=== PATIENT | male | born 1990 | race Caucasian/White ===

== ENCOUNTER 2016-05-14 23:53 | Inpatient (IN) | payer OTHER ==
[~2016-05-14] VITALS: Ht 165.1 cm; Wt 63.1 kg
[2016-05-15 01:17] LABS: MEAN CORPUSCULAR HEMOGLOBIN 27.2 pg (27.0-33.0); MEAN CORPUSCULAR HGB CONC 33.7 g/dl (32.0-36.5); MEAN CORPUSCULAR VOLUME 80.9 fl (80.0-96.0); RED CELL DISTRIBUTION WIDTH 13.4 % (11.5-14.5); WHITE BLOOD COUNT 7.1 K/mm3 (4.0-10.0)
[2016-05-15 01:31] LABS: AMPHETAMINES LEVEL URINE NEGATIVE (NEGATIVE); BENZODIAZEPINES URINE NEGATIVE (NEGATIVE); COCAINE METABOLITE URINE NEGATIVE (NEGATIVE); CONTROL LINE INT CTR LINE PRESENT; METHADONE URINE NEGATIVE (NEGATIVE); OPIATES URINE NEGATIVE (NEGATIVE); TRICYCLIC ANTIDEPRESS URINE NEGATIVE (NEGATIVE)
[2016-05-15 02:02] LABS: ALBUMIN 4.4 GM/DL (3.2-5.2); ALBUMIN/GLOBULIN RATIO 1.42 (1.00-1.93); ALKALINE PHOSPHATASE 91 U/L (45-117); ALT/SGPT 58 U/L (12-78); ANION GAP 11 MEQ/L (8-16); AST/SGOT 40 U/L (15-37); BILIRUBIN,DIRECT < 0.1 MG/DL (0.0-0.2); BILIRUBIN,TOTAL 0.2 MG/DL (0.2-1.0); BLOOD UREA NITROGEN 21 MG/DL (7-18); CALCIUM LEVEL 8.8 MG/DL (8.5-10.1); CARBON DIOXIDE LEVEL 31 MEQ/L (21-32); CHLORIDE LEVEL 100 MEQ/L (98-107); CREATININE FOR GFR 1.14 MG/DL (0.70-1.30); GLOMERULAR FILTRATION RATE > 60.0 (>60); GLUCOSE, FASTING 87 MG/DL (70-105); POTASSIUM SERUM 3.5 MEQ/L (3.5-5.1); SODIUM LEVEL 142 MEQ/L (136-145); TOTAL PROTEIN 7.5 GM/DL (6.4-8.2)
[2016-05-15] MEDS ORDERED: MOM 30ML SUSPENSION UDC PO PRN (02:30)
[2016-05-15] MEDS ORDERED: traZODone 50 MG TAB PO PRN (02:30)
[2016-05-15] MEDS ORDERED: LORazepam 1 MG TAB PO PRN (02:30)
[2016-05-15] MEDS ORDERED: ACETAMINOPHEN TAB 650MG DOSE (2X325MG) PO PRN (02:30)
[2016-05-15] MEDS ORDERED: MAALOX 30 ML SUSP *UDC PO PRN (02:30)
--- NOTE | 2016-05-15 02:33 | EDDOCDS ---
Nurse's Notes [facility] Name: Fidel Grant Age: 25 yrs Sex: Male : 1990 Arrival Date: 05/14/2016 Time: 23:53 Bed [facility] Private MD: Diagnosis: Major depressive disorder, recurrent, moderate;Suicidal ideations Presentation: 05/15 00:05 Presenting complaint: Patient states: he is having thoughts of suicide, denies harm to nn1 self, denies suicide plan at this time. Mental Health Triage Level: Level 2: The patient displays active suicidal ideations. Adult Sepsis Screening: The patient does not have new or worsening altered mentation. Patient's respiratory rate is less than 22. Systolic blood pressure is greater than 100. Patient has a qSOFA score of 0- Negative Sepsis Screen. Mental Health Triage Level: Level 2:. Suicide/Homicide risk assessment- The patient admits to and/or has been reported to be having suicidal ideations. 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 Transition of care: patient was not received from another setting of care. 00:05 Acuity: SHREYA Level 3 nn1 00:05 Method Of Arrival: Walkin/Carried/Asstd nn1 Triage Assessment: 00:08 General: Appears in no apparent distress, Behavior is cooperative, flat, quiet. Pain: nn1 Denies pain. HIV screening NA for this visit Offered previously. The patient is triaged at the bedside. See Assessment in Nurses Notes section of ED record. Neurological: Level of Consciousness is awake, alert, obeys commands. Respiratory: Airway is patent Respiratory effort is even, unlabored, Respiratory pattern is regular, symmetrical, Breath sounds are clear bilaterally. GI: Abdomen is non- distended Bowel sounds present X 4 quads. Derm: Skin is normal. Historical: - Allergies: No known drug Allergies; - Home Meds: 1. none - PMHx: Depression; - PSHx: femur repair, left; - The history from nurses notes was reviewed: and elements of the historical information I have obtained differs from that reported to nursing. - Social history: Smoking status: Patient uses tobacco products, current every day smoker. No barriers to communication noted, The patient speaks fluent Swedish, Speaks appropriately for age. - Family history: No immediate family members are acutely ill. - : The pt / caregiver states he / she is not on anticoagulants. Home medication list is obtained from the patient. - Hospitalizations: : No recent hospitalization is reported. - Exposure Risk Screening:: None identified. - Immunization history:: All immunizations up-to-date. - Social history:: the patient is a non-smoker, the patient drinks alcohol. Screenin:33 Screening information is obtained from the patient. Fall risk: No risks identified. mv5 Assistance ADL's: requires no assistance with activities of daily living. Abuse/DV Screen: The patient / caregiver reports he/she is: not in a situation that causes fear, pain or injury. Nutritional screening: No deficits noted. Advance Directives: There is no active DNR order. home support is adequate. Assessment: 00:09 General: See triage assessment . nn1 00:33 General: Appears in no apparent distress, Behavior is quiet, Pt makes good eye contact, mv5 minimal verbal response to questions. Pt is cooperative and appropriate.. Pain: Denies pain. Neurological: Level of Consciousness is awake, alert, Oriented to person, place, time. Cardiovascular: Capillary refill < 3 seconds. Respiratory: Airway is patent Respiratory effort is even, unlabored, Respiratory pattern is regular, symmetrical. GI: No deficits noted. : No deficits noted. Derm: Skin is pink, warm & dry. 01:08 General: MD in to assess pt. ED FARM FACILITY MANAGER at bedside to collect bloods.. mv5 01:20 General: Patient received calm and cooperative, affect flat, states "had a beer before cf2 I got here". Offers no complaints at present time. Will continue to monitor. 01:53 General: Appears in no apparent distress, Behavior is quiet, Pt resting on stretcher mv5 with eyes closed.. Respiratory: Airway is patent Respiratory effort is even, unlabored, Respiratory pattern is regular, symmetrical. Derm: Skin is pink, warm & dry. 02:29 Reassessment: Patient resting comfortably. Remains calm and cooperative. 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 Referral Information: cl Evaluation referral is generated by the patient himself / herself. The patient was referred for evaluation because Pt expressing SI, has prior hx of depression and admission to [facility].. 01:32 [facility] Behavioral Health: The patient is not an established patient of [facility] Behavioral cl Health. Subjective: The patients chief complaint is Pt self presents to ED c/o feeling depressed/suicidal. Pt is quite guarded with minimal speech, poor eye contact, provides little information, many one word answers . Pt reports ongoing marital px, states "some things came to light about my , and now I'm here". Pt will not elaborate, remains guarded and is poor historian at this time. Pt denies AH/VH/substance abuse, when asked if any HI pt hesitates and mumbles "no", denies that he is in any current outpt MH tx, reports 1 prior deployment to [place], denies any PTSD issues.. Delusions are denied. Patient's mood is irritable, Hallucinations are denied. Mental Health history: depression, suicide ideation ideation Mental Health Admissions: [facility] 11/20...depression/SI/HI Current Outpatient Mental Health Services: None. Current living environment is The patient currently lives with his / her spouse, . The patient is . Patient presents to Emergency Department with the following symptoms within the past 2 weeks: anger, depressed mood, marital problem, suicidal ideation with plan for motor vehicle crash. Substance abuse: Pt denies. Mental status exam: Patients appearance is appropriate, Patient's behavior is minimally responsive Speech is mumbled. Affect is restricted. Mood is irritable. Hallucinations are denied. Appetite is normal. Memory is good. Energy level is normal. Content of thought is depressive. depressive Thought process is intact. Cognitive level is oriented to person, place, time and situation. 02:07 Disposition: Medically cleared for disposition by Adam Prater MD Psychiatric Consult cl is performed by phone with Dr Hussain Pereyra. 02:11 [facility] Admission Criteria: The patient is experiencing suicidal ideation. The patient cl displays symptoms of severe psychiatric disorder resulting in disordered behavior and significant interference with his / her ability to maintain self care. Psychomotor Retardation. The patient requires continuous observation and/or control to protect self, others or property. The patient's care requires a multi-modal treatment plan under close supervision and coordination due to the complexity and severity of the patient's symptoms. Legal Status: Patient's legal status will be Emergency admission: . [place] Safe [place]: [place] Safe Act is applicable to this patient. The patient poses a risk to self or other and the Nursing Pool Table Mechanic has been notified. He/She will enter the patient's data. DSM-V Differential Diagnosis: Unspecified Depressive Disorder (F32.9). Insurance Pre-Certification: Not Required. Family Notification: Notification to family of patient status is not currently needed or appropriate. Awaiting: transfer to [facility]. Vital Signs: 00:21 BP 149 / 75; Pulse 100; Resp 16; Temp 98.8(O); Pulse Ox 98% ; Weight 70.31 kg (R); [facility] Height 5 ft. 5 in. (165.10 cm) (R); Pain 0/10; 02:23 BP 143 / 68; Pulse 80; Resp 16; Temp 97.9; Pulse Ox 98% ; Pain 0/10; mas 00:21 Body Mass Index 25.79 (70.31 kg, 165.10 cm) [facility] Vitals: 02:30 Log In Time N/A - ambulance arrival. cf2 ED Course: 05/14 23:55 Patient visited by Arnulfo Payne, Reg. pm4 23:55 Patient moved to Waiting pm4 02 00:00 Patient moved to [address] 00:07 Patient name changed from Haze\\S\\\\S\\Przeslak\\S\\ to Haze\\S\\ \\S\\Przeslak. EDMS 00:07 Triage Initiated nn1 00:10 Patient visited by Salvatore Chavira. mas 00:15 Patient visited by Salvatore Chavira. [facility] 00:22 Pt greeted and oriented to ED. Patient advised of names of staff involved in care, [facility] location of call [place], wait times and NPO status. Patient has correct armband on for positive identification. Placed in psych safe attire. Bed in low position. Call light in reach. Side rails up X 1. Security observing. Property removed, inventory done, secured in belongings bag- placed in locked storage room. Placed in locker 1. Door closed. Noise minimized. Moved to private room. Verbal reassurance given. Warm blanket given. Pillow given. Psych Safety Check: Location: Psych Room. Visual Assessment: cooperative \\T\\ this time. 00:32 Isabella Flanagan,RN is Primary Nurse. mv5 00:33 The patient / caregiver is instructed regarding the plan of care and ED course. mv5 00:38 Patient visited by Alex Bell PCA. jmv 00:45 Patient visited by Salvatore Chavira. mas 00:46 Adam Prater MD is Attending Physician. pc 01:04 Patient visited by Salvatore Chavira. mas 01:09 Primary Nurse role handed off by Isabella Flanagan,ARLIN cf2 01:09 Tabitha Mills,ARLIN is Primary Nurse. cf2 01:09 Patient visited by Tabitha Mills,ARLIN. cf2 01:11 Acetaminophen Level Sent. jmv 01:11 Basic Metabolic Profile Sent. jmv 01:11 Complete Blood Count Sent. jmv 01:11 Drug Eval Toxicology ED Only Sent. jmv 01:11 Ethyl Alcohol (ethanol) Sent. jmv 01:11 Liver Profile Sent. jmv 01:11 Salicylate Level Sent. jmv 01:11 Thyroid Stimulating Hormone Sent. jmv 01:13 Patient visited by Adam Prater MD. pc 01:15 Patient visited by Salvatore Chavira. mas 01:19 Patient visited by Tabitha Mills RN. cf2 01:20 Sitter at bedside. cf2 01:20 No procedures done that require assistance. cf2 01:20 No IV's were initiated during this patient's visit. cf2 01:30 Patient visited by Salvatore Chavira. mas 01:45 Patient visited by Salvatore Chavira. mas 02:00 Patient visited by Salvatore Chavira. mas 02:16 Patient visited by Salvatore Chavira. mas 02:17 Hussain Pereyra is Hospitalizing Provider. pc 02:25 E Legal paperwork was scanned into [employer] and attached to record. cl Attachments: 02:25 M[facility] Legal paperwork cl Order Results: Lab Order: Acetaminophen Level; SPEC'M 05/15/16 01:07 Test: ACETAMINOPHEN LEVEL; Value: < 2.0; Range: 10.0-30.0; Abnormal: Below low normal; Units: UG/ML; Status: F Lab Order: Basic Metabolic Profile; SPEC'M 05/15/16 01:07 Test: GLUCOSE, FASTING; Value: 87; Range: 70-105; Units: MG/DL; Status: F Test: BLOOD UREA NITROGEN; Value: 21; Range: 7-18; Abnormal: Above high normal; Units: MG/DL; Status: F Test: CREATININE FOR GFR; Value: 1.14; Range: 0.70-1.30; Units: MG/DL; Status: F Test: GLOMERULAR FILTRATION RATE; Value: > 60.0; Range: >60; Status: F Test: SODIUM LEVEL; Value: 142; Range: 136-145; Units: MEQ/L; Status: F Test: POTASSIUM SERUM; Value: 3.5; Range: 3.5-5.1; Units: MEQ/L; Status: F Test: CHLORIDE LEVEL; Value: 100; Range: 98-107; Units: MEQ/L; Status: F Test: CARBON DIOXIDE LEVEL; Value: 31; Range: 21-32; Units: MEQ/L; Status: F Test: ANION GAP; Value: 11; Range: 8-16; Units: MEQ/L; Status: F Test: CALCIUM LEVEL; Value: 8.8; Range: 8.5-10.1; Units: MG/DL; Status: F Test Note: ; Units are mL/min/1.73 m2 Chronic Kidney Disease Staging per NKF: Stage I & II GFR >=60 Normal to Mildly Decreased Stage III GFR 30-59 Moderately Decreased Stage IV GFR 15-29 Severely Decreased Stage V GFR <15 Very Little GFR Left ESRD GFR <15 on EXECUTIVE KITCHEN MANAGER Lab Order: Complete Blood Count; [facility] 05/15/16 01:07 Test: WHITE BLOOD COUNT; Value: 7.1; Range: 4.0-10.0; Units: K/mm3; Status: F Test: RED BLOOD COUNT; Value: 4.95; Range: 4.30-6.10; Units: M/mm3; Status: F Test: HEMOGLOBIN; Value: 13.5; Range: 14.0-18.0; Abnormal: Below low normal; Units: g/dl; Status: F Test: HEMATOCRIT; Value: 40.1; Range: 42.0-52.0; Abnormal: Below low normal; Units: %; Status: F Test: MEAN CORPUSCULAR VOLUME; Value: 80.9; Range: 80.0-96.0; Units: fl; Status: F Test: MEAN CORPUSCULAR HEMOGLOBIN; Value: 27.2; Range: 27.0-33.0; Units: pg; Status: F Test: MEAN CORPUSCULAR HGB CONC; Value: 33.7; Range: 32.0-36.5; Units: g/dl; Status: F Test: RED CELL DISTRIBUTION WIDTH; Value: 13.4; Range: 11.5-14.5; Units: %; Status: F Test: PLATELET COUNT, AUTOMATED; Value: 225; Range: 150-450; Units: k/mm3; Status: F Lab Order: Drug Eval Toxicology ED Only; SPEC'M 05/15/16 01:07 Test: AMPHETAMINES LEVEL URINE; Value: NEGATIVE; Range: NEGATIVE; Status: F Test: BARBITURATES URINE; Value: NEGATIVE; Range: NEGATIVE; Status: F Test: BENZODIAZEPINES URINE; Value: NEGATIVE; Range: NEGATIVE; Status: F Test: CANNABINOIDS URINE; Value: NEGATIVE; Range: NEGATIVE; Status: F Test: COCAINE METABOLITE URINE; Value: NEGATIVE; Range: NEGATIVE; Status: F Test: METHADONE URINE; Value: NEGATIVE; Range: NEGATIVE; Status: F Test: OPIATES URINE; Value: NEGATIVE; Range: NEGATIVE; Status: F Test: TRICYCLIC ANTIDEPRESS URINE; Value: NEGATIVE; Range: NEGATIVE; Status: F Test Note: ; ALL PRESUMPTIVE POSITIVE FINDINGS ARE UNCONFIRMED NORMAL VALUES THRESHOLD IN NG/ML AMPHETAMINES 1000 METHAMPHETAMINES 1000 BARBITURATES 300 BENZODIAZEPINES 300 CANNABINOIDS (THC) 50 COCAINE METABOLITE 300 METHADONE 300 OPIATES 300 PHENCYCLIDINE 25 TRICYCLIC ANTIDEPRESSANTS 1000 RESULTS ARE FOR MEDICAL PURPOSES ONLY. ALL URINE SPECIMENS WILL BE SAVED FOR 3 DAYS. IF CONFIRMATION OF A PRESUMPTIVE POSTIVE SCREEN RESULT IS DESIRED, CALL CHEMISTRY ([phone]) AND REQUEST URINE TO BE SENT TO REFERENCE LAB. FOR A LIST OF CLOSELY RELATED COMPOUNDS PLEASE CALL THE LAB. Lab Order: Ethyl Alcohol (ethanol); SPEC'M 05/15/16 01:07 Test: ETHYL ALCOHOL (ETHANOL); Value: 0.003; Range: 0.000-0.010; Units: %; Status: F Lab Order: Liver Profile; SPEC'M 05/15/16 01:07 Test: AST/SGOT; Value: 40; Range: 15-37; Abnormal: Above high normal; Units: U/L; Status: F Test: ALT/SGPT; Value: 58; Range: 12-78; Units: U/L; Status: F Test: ALKALINE PHOSPHATASE; Value: 91; Range: 45-117; Units: U/L; Status: F Test: BILIRUBIN,TOTAL; Value: 0.2; Range: 0.2-1.0; Units: MG/DL; Status: F Test: BILIRUBIN,DIRECT; Value: < 0.1; Range: 0.0-0.2; Units: MG/DL; Status: F Test: TOTAL PROTEIN; Value: 7.5; Range: 6.4-8.2; Units: GM/DL; Status: F Test: ALBUMIN; Value: 4.4; Range: 3.2-5.2; Units: GM/DL; Status: F Test: ALBUMIN/GLOBULIN RATIO; Value: 1.42; Range: 1.00-1.93; Status: F Lab Order: Salicylate Level; SPEC'M 05/15/16 01:07 Test: SALICYLATE LEVEL; Value: < 1.7; Range: 5.0-30.0; Abnormal: Below low normal; Units: MG/DL; Status: F Lab Order: Thyroid Stimulating Hormone; SPEC'M 05/15/16 01:07 Test: THYROID STIMULATING HORMONE; Value: 1.770; Range: 0.358-3.740; Units: uIU/ML; Status: F Outcome: 02:17 Decision to Hospitalize by Provider. pc 02:29 Discharge Assessment: Patient awake, alert and oriented x 3. No cognitive and/or cf2 functional deficits noted. Patient verbalized understanding of disposition instructions. Patient awake and alert. Oriented to person, place and time. patient administered narcotics - no. The following High Risk Discharge criteria are identified: Yes, Patient with depression and suicidal ideations. Admitted to Psych accompanied by tech. Condition: good Condition: stable Condition: improved. CT Study completed. 02:32 Patient left the ED. cf2 Signatures: Dispatcher [employer] EDMS Adam Prater MD MD pc Lavin, Chris, Salvatore Lundy NikkoleRN RN nn1 Tabitha Mills,RN RN cf2 Alex Bell, FARM FACILITY MANAGER FARM FACILITY MANAGER Arnulfo Aquino, Reg Reg pm4 Isabella Flanagan,RN RN mv5 Corrections: (The following items were deleted from the chart) 00:47 00:07 PMHx: none; nn1 pc 01:22 01:20 Assist provider with arterial line placement cf2 cf2 MTDD
--- NOTE | 2016-05-15 02:33 | EDDOCDS ---
Physician Documentation [facility] Name: Fidel Grant Age: 25 yrs Sex: Male : 1990 Arrival Date: 05/14/2016 Time: 23:53 Bed BHU1 Private MD: Disposition: 05/15 02:17 Critical Care: Critical care not applicable. pc Disposition: 05/15/16 02:17 Hospitalization ordered by Hussain Pereyra for Inpatient Admission. Preliminary diagnosis are Major depressive disorder, recurrent, moderate, Suicidal ideations. - Bed requested for Admit. - Status is Inpatient Admission. cf2 - Condition is Stable. - Problem is new. - Symptoms are unchanged. HPI: 01:13 This 25 yrs old Male presents to ER via Walkin/Carried/Asstd with complaints pc of Suicidal Ideation. 01:13 The history is obtained from the patient. The patient presents to the emergency pc department with suicidal ideation, depression. At their worst, the symptoms were moderate. In the emergency department, the symptoms are unchanged. He is very reserved, will not discuss his issues. Very brief answers to all questions, poor eye contact. The patient has experienced a previous episode, last year. The patient has not recently seen a physician. He denied any Psych history or admissions despite being admitted here last summer for the same. Historical: - Allergies: No known drug Allergies; - Home Meds: 1. none - PMHx: Depression; - PSHx: femur repair, left; - The history from nurses notes was reviewed: and elements of the historical information I have obtained differs from that reported to nursing. - Social history: Smoking status: Patient uses tobacco products, current every day smoker. No barriers to communication noted, The patient speaks fluent Danish, Speaks appropriately for age. - Family history: No immediate family members are acutely ill. - : The pt / caregiver states he / she is not on anticoagulants. Home medication list is obtained from the patient. - Hospitalizations: : No recent hospitalization is reported. - Exposure Risk Screening:: None identified. - Immunization history:: All immunizations up-to-date. - Social history:: the patient is a non-smoker, the patient drinks alcohol. ROS: 01:33 All systems are negative except as listed. The psychiatric and neurological components pc are also addressed in the HPI. Exam: 01:33 General Appearance: alert, no acute distress. pc 01:33 ENT: ear, nose and throat normal, pharynx normal. 01:33 Eyes: pupils equal, round and reactive to light, extraocular motions intact. 01:33 Neck: The exam reveals no acute abnormalities. ROM is normal and painless. No nuchal rigidity is noted.. 01:33 Respiratory: breathing is even and unlabored, breath sounds are normal. 01:33 Cardiovascular: regular pulse rate, regular heart rhythm, normal heart sounds, equal and full pulses bilaterally. 01:33 Abdomen: soft, non-tender, no organomegaly. 01:33 Skin: skin color is normal, warm, dry. 01:33 Extremities: The extremities have a grossly normal appearance, are non-tender, without acute ROM abnormalities. 01:33 Neuro: alert, oriented to person, place and time, cranial nerves normal as tested, no motor deficits, no sensory deficits. 01:33 Psych: mood is depressed, affect is flat. Vital Signs: 00:21 BP 149 / 75; Pulse 100; Resp 16; Temp 98.8(O); Pulse Ox 98% ; Weight 70.31 kg / 155.01 mas lbs (R); Height 5 ft. 5 in. (165.10 cm) (R); Pain 0/10; 02:23 BP 143 / 68; Pulse 80; Resp 16; Temp 97.9; Pulse Ox 98% ; Pain 0/10; mas 00:21 Body Mass Index 25.79 (70.31 kg, 165.10 cm) [facility] MDM: 00:46 Consult PFS/PSA/Tool Distributor: Patient's case requires discussion with on-call pc Psychiatrist ordered. 00:46 PSA/PFS to call Nursing Supercharger Repair Supervisor, to enter patient data on [place] Safe Act if patient pc involuntarily admitted or transferred for SI or HI ordered. 00:46 Confirm accurate psychiatric medication list and times of last dosage ordered. pc 00:46 Detain Pt Until Medically/PFS Cleared ordered. pc 00:47 Acetaminophen Level Ordered. EDMS 00:47 Basic Metabolic Profile Ordered. EDMS 00:47 Complete Blood Count Ordered. EDMS 00:47 Drug Eval Toxicology ED Only Ordered. EDMS 00:47 Ethyl Alcohol (ethanol) Ordered. EDMS 00:47 Liver Profile Ordered. EDMS 00:47 Salicylate Level Ordered. EDMS 00:47 Thyroid Stimulating Hormone Ordered. EDMS 01:33 Differential diagnosis: depression, suicidal ideation. Plan: labs, PFS eval. pc 01:37 Financial registration complete. hs2 01:38 Consult PFS/PSA/Tool Distributor: Patient's case requires discussion with on-call cl Psychiatrist complete. 01:38 PSA/PFS to call Nursing Supercharger Repair Supervisor, to enter patient data on [place] Safe Act if patient cl involuntarily admitted or transferred for SI or HI complete. 02:01 Complete Blood Count Reviewed. pc 02:01 Drug Eval Toxicology ED Only Reviewed. pc 02:04 Acetaminophen Level Reviewed. pc 02:04 Basic Metabolic Profile Reviewed. pc 02:04 Liver Profile Reviewed. pc 02:04 Salicylate Level Reviewed. pc 02:04 Ethyl Alcohol (ethanol) Reviewed. pc 02:04 Thyroid Stimulating Hormone Reviewed. pc 02:17 The patient has been medically cleared for psychiatric evaluation, admission and/or pc transfer. [place] Safe Act reporting: The patient poses a significant risk to self or others, and PSA/PFS has notified the Nursing Supercharger Repair Supervisor and he/she will complete the required data integration architect. Data reviewed: old medical records, vital signs, nurses notes, lab test results. Test interpretation: LAB - all labs as ordered have been reviewed, interpreted and considered in the overall management of the clinical presentation;. The patient has been re-examined and re-evaluated. There is no appreciated change of the patient's symptoms at this time. Other consultation: The ED dairy husbandry worker was notified and will evaluate the patient. 02:17 Disposition: The historical points, examination findings, and any diagnostic results pc supporting the provided diagnosis, were discussed with the patient or legal guardian. The need for further work-up and/or treatment in the hospital was explained. 02:23 Admit to IMHU: ordered. EDMS 02:23 REGULAR DIET ordered. EDMS 02:25 MHE Legal paperwork was scanned into [employer] and attached to record. cl Signatures: Dispatcher [employer] EDMS Adam Prater MD MD pc Lavin, Chris, PSA PSA cl Basim MartinRN RN nn1 Lesly Pathak, Reg Reg hs2 Tabitha Mills RN RN cf2 Isabella Flanagan RN RN mv5 The chart was reviewed and I authenticate all verbal orders and agree with the evaluation and treatment provided.Corrections: (The following items were deleted from the chart) 00:47 00:07 PMHx: none; nn1 pc MTDD
[2016-05-15 02:42] VITALS: BP 142/78
[2016-05-15] MEDS ORDERED: DICL1GEL3 TD (04:06)
--- NOTE | 2016-05-15 11:49 | HPEPDOC ---
Medical History and Physical Date of Admission May 15, 2016 at 02:35 History and Physical PCP: [facility] ATTENDING: Dr. Germain Barriga HPI: 25yoM admitted to [facility] for MDD, being medically examined today. No acute medical complaints today. Denies any fevers, chills, weakness, fatigue, CHILDS, CP, SOB, cough, palpitations, abdominal pain, N/V/D or changes in bowel or bladder habits. 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 ROS: As noted in HPI, otherwise 11pt ROS of systems reviewed and unremarkable PE: GEN: 24yoM, appears stated age. Well-nourished, well developed. No acute distress. Alert and oriented x 3. Pleasant, interactive. HEENT: Normocephalic, atraumatic. Pupils are equal, round, and reactive to light. Extraocular movements are intact. No nystagmus appreciated. Sclera are nonicteric. Conjunctiva without injection. Nose midline. Nasal turbinates without bogginess. EACs both patent BL. TMs both visualized and garrett with good cone of light, no bulging or erythema. No facial asymmetry. Moist mucous membranes. Dentition fair. Pharynx pink and moist, no cobblestoning. Neck supple , trachea midline. No lymphadenopathy or thyromegaly appreciated. CHEST: Regular rate and rhythm, +S1, +S2 LUNGS: Clear to auscultation bilaterally. No wheezes, rales, or rhonchi. Breathing appears symmetric and easy. Patient is speaking in full sentences. No accessory muscle use. ABD: Round, soft, non-tender, non-distended. +Bowel sounds throughout. No rebound or guarding. No costovertebral angle tenderness. EXT: Pulses 2+ bilaterally dorsalis pedis and radial. No lower extremity edema appreciated. SKIN: [place], dry, warm. Capillary refill <2sec. No rashes. NEURO: Alert and oriented x 3. Cranial nerves III-XII are intact. No focal deficits appreciated. EK/16 SB, short OR interval, early repolarization. A&P: 24yoM admitted to [facility] for MDD. 1. Psych. Plan per Psychiatry. EKG on file. 2. Nicotine dependence. Patch available. 3. Elevated AST. Recheck CMP. 4. Follow up with PCP on discharge. [facility]. 5. 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 Vital Signs Vital Signs Label Value Date Time Patient Temperature 97.6 degrees F 05/15/16 0242 Temperature Source Tympanic 05/15/16 0242 Pulse 82 05/15/16 0242 Respiratory Rate 20 bpm 05/15/16 0242 Blood Pressure Assessment 142/78 (99) 05/15/16 0242 Laboratory Data Labs 24H Laboratory Tests 2 05/15/16 01:07: Acetaminophen Level < 2.0L, Aspartate Amino Transf (AST/SGOT) 40H, Alanine Aminotransferase (ALT/SGPT) 58, Alkaline Phosphatase 91, Total Bilirubin 0.2, Direct Bilirubin < 0.1, Albumin 4.4, Albumin/Globulin Ratio 1.42, Anion Gap 11, Calcium Level 8.8, Ethyl Alcohol Level 0.003, Glomerular Filtration Rate > 60.0 , Salicylates Level < 1.7L, Thyroid Stimulating Hormone (TSH) 1.770, Total Protein 7.5, Urine Amphetamine Level NEGATIVE, Urine Benzodiazepines Screen NEGATIVE, Urine Cannabinoids NEGATIVE, Urine Cocaine Metabolite NEGATIVE, Urine Opiates Screen NEGATIVE, Urine Barbiturates, Qualitative NEGATIVE, Urine Methadone Screen NEGATIVE, Urine Tricyclic Antidepressants NEGATIVE CBC/BMP Laboratory Tests 05/15/16 01:07 Red Blood Count 4.95, Mean Corpuscular Volume 80.9, Mean Corpuscular Hemoglobin 27.2, Mean Corpuscular Hemoglobin Concent 33.7, Red Cell Distribution Width 13.4 Home Medications Scheduled PRN (Diclofenac Sodium) 1 % Gel 1 DOSE TD DAILY PRN PRN PAIN APPLIES TO KNEES Allergies Coded Allergies: No Known Drug Allergy (Verified Allergy, Unknown, 11/14/15) Sonya Helm May 15, 2016 11:49
[2016-05-15 12:38] VITALS: BP 124/56
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
[2016-05-15] MEDS ORDERED: hydrOXYzine 50 MG TAB PO PRN (16:00)
[2016-05-15 18:04] VITALS: BP 122/62
[2016-05-15] MEDS: traZODone 50 MG TAB PO SCH (21:19)
[2016-05-16 07:04] VITALS: BP 112/63
[2016-05-16 08:15] LABS: ALBUMIN 3.6 GM/DL (3.2-5.2); ALKALINE PHOSPHATASE 80 U/L (45-117); ALT/SGPT 43 U/L (12-78); ANION GAP 7 MEQ/L (8-16); AST/SGOT 24 U/L (15-37); BILIRUBIN,TOTAL 0.4 MG/DL (0.2-1.0); BLOOD UREA NITROGEN 16 MG/DL (7-18); CARBON DIOXIDE LEVEL 30 MEQ/L (21-32); CHLORIDE LEVEL 106 MEQ/L (98-107); CREATININE FOR GFR 1.15 MG/DL (0.70-1.30); GLOMERULAR FILTRATION RATE > 60.0 (>60); GLUCOSE, FASTING 87 MG/DL (70-105); POTASSIUM SERUM 4.3 MEQ/L (3.5-5.1); SODIUM LEVEL 143 MEQ/L (136-145); TOTAL PROTEIN 6.6 GM/DL (6.4-8.2)
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
[2016-05-16 18:00] VITALS: BP 113/68
[2016-05-16] MEDS: traZODone 50 MG TAB PO SCH (22:34)
--- NOTE | 2016-05-17 03:33 | EDDOCDS ---
Physician Documentation [facility] Name: Fidel Grant Age: 25 yrs Sex: Male : 1990 Arrival Date: 05/14/2016 Time: 23:53 Bed BHU1 Private MD: Disposition: 05/15 02:17 Critical Care: Critical care not applicable. pc Disposition: 05/15/16 02:17 Hospitalization ordered by Hussain Pereyra for Inpatient Admission. Preliminary diagnosis are Major depressive disorder, recurrent, moderate, Suicidal ideations. - Bed requested for Admit. - Status is Inpatient Admission. cf2 - Condition is Stable. - Problem is new. - Symptoms are unchanged. HPI: 01:13 This 25 yrs old Male presents to ER via Walkin/Carried/Asstd with complaints pc of Suicidal Ideation. 01:13 The history is obtained from the patient. The patient presents to the emergency pc department with suicidal ideation, depression. At their worst, the symptoms were moderate. In the emergency department, the symptoms are unchanged. He is very reserved, will not discuss his issues. Very brief answers to all questions, poor eye contact. The patient has experienced a previous episode, last year. The patient has not recently seen a physician. He denied any Psych history or admissions despite being admitted here last summer for the same. Historical: - Allergies: No known drug Allergies; - Home Meds: 1. none - PMHx: Depression; - PSHx: femur repair, left; - The history from nurses notes was reviewed: and elements of the historical information I have obtained differs from that reported to nursing. - Social history: Smoking status: Patient uses tobacco products, current every day smoker. No barriers to communication noted, The patient speaks fluent Nepali, Speaks appropriately for age. - Family history: No immediate family members are acutely ill. - : The pt / caregiver states he / she is not on anticoagulants. Home medication list is obtained from the patient. - Hospitalizations: : No recent hospitalization is reported. - Exposure Risk Screening:: None identified. - Immunization history:: All immunizations up-to-date. - Social history:: the patient is a non-smoker, the patient drinks alcohol. ROS: 01:33 All systems are negative except as listed. The psychiatric and neurological components pc are also addressed in the HPI. Exam: 01:33 General Appearance: alert, no acute distress. pc 01:33 ENT: ear, nose and throat normal, pharynx normal. 01:33 Eyes: pupils equal, round and reactive to light, extraocular motions intact. 01:33 Neck: The exam reveals no acute abnormalities. ROM is normal and painless. No nuchal rigidity is noted.. 01:33 Respiratory: breathing is even and unlabored, breath sounds are normal. 01:33 Cardiovascular: regular pulse rate, regular heart rhythm, normal heart sounds, equal and full pulses bilaterally. 01:33 Abdomen: soft, non-tender, no organomegaly. 01:33 Skin: skin color is normal, warm, dry. 01:33 Extremities: The extremities have a grossly normal appearance, are non-tender, without acute ROM abnormalities. 01:33 Neuro: alert, oriented to person, place and time, cranial nerves normal as tested, no motor deficits, no sensory deficits. 01:33 Psych: mood is depressed, affect is flat. Vital Signs: 00:21 BP 149 / 75; Pulse 100; Resp 16; Temp 98.8(O); Pulse Ox 98% ; Weight 70.31 kg / 155.01 mas lbs (R); Height 5 ft. 5 in. (165.10 cm) (R); Pain 0/10; 02:23 BP 143 / 68; Pulse 80; Resp 16; Temp 97.9; Pulse Ox 98% ; Pain 0/10; mas 00:21 Body Mass Index 25.79 (70.31 kg, 165.10 cm) [facility] MDM: 00:46 Consult PFS/PSA/Clinical Trial Coordinator: Patient's case requires discussion with on-call pc Psychiatrist ordered. 00:46 PSA/PFS to call Nursing Alpine Guide, to enter patient data on [place] Safe Act if patient pc involuntarily admitted or transferred for SI or HI ordered. 00:46 Confirm accurate psychiatric medication list and times of last dosage ordered. pc 00:46 Detain Pt Until Medically/PFS Cleared ordered. pc 00:47 Acetaminophen Level Ordered. EDMS 00:47 Basic Metabolic Profile Ordered. EDMS 00:47 Complete Blood Count Ordered. EDMS 00:47 Drug Eval Toxicology ED Only Ordered. EDMS 00:47 Ethyl Alcohol (ethanol) Ordered. EDMS 00:47 Liver Profile Ordered. EDMS 00:47 Salicylate Level Ordered. EDMS 00:47 Thyroid Stimulating Hormone Ordered. EDMS 01:33 Differential diagnosis: depression, suicidal ideation. Plan: labs, PFS eval. pc 01:37 Financial registration complete. hs2 01:38 Consult PFS/PSA/Clinical Trial Coordinator: Patient's case requires discussion with on-call cl Psychiatrist complete. 01:38 PSA/PFS to call Nursing Alpine Guide, to enter patient data on [place] Safe [place] if patient cl involuntarily admitted or transferred for SI or HI complete. 02:01 Complete Blood Count Reviewed. pc 02:01 Drug Eval Toxicology ED Only Reviewed. pc 02:04 Acetaminophen Level Reviewed. pc 02:04 Basic Metabolic Profile Reviewed. pc 02:04 Liver Profile Reviewed. pc 02:04 Salicylate Level Reviewed. pc 02:04 Ethyl Alcohol (ethanol) Reviewed. pc 02:04 Thyroid Stimulating Hormone Reviewed. pc 02:17 The patient has been medically cleared for psychiatric evaluation, admission and/or pc transfer. [place] Safe Act reporting: The patient poses a significant risk to self or others, and PSA/PFS has notified the Nursing Alpine Guide and he/she will complete the required databases computer consultant. Data reviewed: old medical records, vital signs, nurses notes, lab test results. Test interpretation: LAB - all labs as ordered have been reviewed, interpreted and considered in the overall management of the clinical presentation;. The patient has been re-examined and re-evaluated. There is no appreciated change of the patient's symptoms at this time. Other consultation: The ED ironworker was notified and will evaluate the patient. 02:17 Disposition: The historical points, examination findings, and any diagnostic results pc supporting the provided diagnosis, were discussed with the patient or legal guardian. The need for further work-up and/or treatment in the hospital was explained. 02:23 Admit to IMHU: ordered. EDMS 02:23 REGULAR DIET ordered. EDMS 02:25 [facility] Legal paperwork was scanned into [employer] and attached to record. cl 02:40 [place] Payment Agreement was scanned into [employer] and attached to record. hs2 Signatures: Dispatcher [employer] EDMS Adam Prater MD MD pc Lavin, Chris, PSA PSA cl Basim MartinRN RN nn1 Lesly Pathak, Reg Reg hs2 Tabitha Mills RN RN cf2 Isabella FlanaganRN RN mv5 The chart was reviewed and I authenticate all verbal orders and agree with the evaluation and treatment provided.Corrections: (The following items were deleted from the chart) 00:47 00:07 PMHx: none; nn1 pc Attachments: 02:40 [facility] Payment Agreement hs2 Chart Complete MTDD
--- NOTE | 2016-05-17 03:33 | EDDOCDS ---
Nurse's Notes [facility] Name: Fidel Grant Age: 25 yrs Sex: Male : 1990 Arrival Date: 05/14/2016 Time: 23:53 Bed [facility] Private MD: Diagnosis: Major depressive disorder, recurrent, moderate;Suicidal ideations Presentation: 05/15 00:05 Presenting complaint: Patient states: he is having thoughts of suicide, denies harm to nn1 self, denies suicide plan at this time. Mental Health Triage Level: Level 2: The patient displays active suicidal ideations. Adult Sepsis Screening: The patient does not have new or worsening altered mentation. Patient's respiratory rate is less than 22. Systolic blood pressure is greater than 100. Patient has a qSOFA score of 0- Negative Sepsis Screen. Mental Health Triage Level: Level 2:. Suicide/Homicide risk assessment- The patient admits to and/or has been reported to be having suicidal ideations. 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 Transition of care: patient was not received from another setting of care. 00:05 Acuity: SHREYA Level 3 nn1 00:05 Method Of Arrival: Walkin/Carried/Asstd nn1 Triage Assessment: 00:08 General: Appears in no apparent distress, Behavior is cooperative, flat, quiet. Pain: nn1 Denies pain. HIV screening NA for this visit Offered previously. The patient is triaged at the bedside. See Assessment in Nurses Notes section of ED record. Neurological: Level of Consciousness is awake, alert, obeys commands. Respiratory: Airway is patent Respiratory effort is even, unlabored, Respiratory pattern is regular, symmetrical, Breath sounds are clear bilaterally. GI: Abdomen is non- distended Bowel sounds present X 4 quads. Derm: Skin is normal. Historical: - Allergies: No known drug Allergies; - Home Meds: 1. none - PMHx: Depression; - PSHx: femur repair, left; - The history from nurses notes was reviewed: and elements of the historical information I have obtained differs from that reported to nursing. - Social history: Smoking status: Patient uses tobacco products, current every day smoker. No barriers to communication noted, The patient speaks fluent Ukrainian, Speaks appropriately for age. - Family history: No immediate family members are acutely ill. - : The pt / caregiver states he / she is not on anticoagulants. Home medication list is obtained from the patient. - Hospitalizations: : No recent hospitalization is reported. - Exposure Risk Screening:: None identified. - Immunization history:: All immunizations up-to-date. - Social history:: the patient is a non-smoker, the patient drinks alcohol. Screenin:33 Screening information is obtained from the patient. Fall risk: No risks identified. mv5 Assistance ADL's: requires no assistance with activities of daily living. Abuse/DV Screen: The patient / caregiver reports he/she is: not in a situation that causes fear, pain or injury. Nutritional screening: No deficits noted. Advance Directives: There is no active DNR order. home support is adequate. Assessment: 00:09 General: See triage assessment . nn1 00:33 General: Appears in no apparent distress, Behavior is quiet, Pt makes good eye contact, mv5 minimal verbal response to questions. Pt is cooperative and appropriate.. Pain: Denies pain. Neurological: Level of Consciousness is awake, alert, Oriented to person, place, time. Cardiovascular: Capillary refill < 3 seconds. Respiratory: Airway is patent Respiratory effort is even, unlabored, Respiratory pattern is regular, symmetrical. GI: No deficits noted. : No deficits noted. Derm: Skin is pink, warm & dry. 01:08 General: MD in to assess pt. ED MILK COLLECTOR at bedside to collect bloods.. mv5 01:20 General: Patient received calm and cooperative, affect flat, states "had a beer before cf2 I got here". Offers no complaints at present time. Will continue to monitor. 01:53 General: Appears in no apparent distress, Behavior is quiet, Pt resting on stretcher mv5 with eyes closed.. Respiratory: Airway is patent Respiratory effort is even, unlabored, Respiratory pattern is regular, symmetrical. Derm: Skin is pink, warm & dry. 02:29 Reassessment: Patient resting comfortably. Remains calm and cooperative. 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 Referral Information: cl Evaluation referral is generated by the patient himself / herself. The patient was referred for evaluation because Pt expressing SI, has prior hx of depression and admission to [facility].. 01:32 [facility] Behavioral Health: The patient is not an established patient of [facility] Behavioral cl Health. Subjective: The patients chief complaint is Pt self presents to ED c/o feeling depressed/suicidal. Pt is quite guarded with minimal speech, poor eye contact, provides little information, many one word answers . Pt reports ongoing marital px, states "some things came to light about my , and now I'm here". Pt will not elaborate, remains guarded and is poor historian at this time. Pt denies AH/VH/substance abuse, when asked if any HI pt hesitates and mumbles "no", denies that he is in any current outpt MH tx, reports 1 prior deployment to [place], denies any PTSD issues.. Delusions are denied. Patient's mood is irritable, Hallucinations are denied. Mental Health history: depression, suicide ideation ideation Mental Health Admissions: [facility] 11/20...depression/SI/HI Current Outpatient Mental Health Services: None. Current living environment is The patient currently lives with his / her spouse, . The patient is . Patient presents to Emergency Department with the following symptoms within the past 2 weeks: anger, depressed mood, marital problem, suicidal ideation with plan for motor vehicle crash. Substance abuse: Pt denies. Mental status exam: Patients appearance is appropriate, Patient's behavior is minimally responsive Speech is mumbled. Affect is restricted. Mood is irritable. Hallucinations are denied. Appetite is normal. Memory is good. Energy level is normal. Content of thought is depressive. depressive Thought process is intact. Cognitive level is oriented to person, place, time and situation. 02:07 Disposition: Medically cleared for disposition by Adam Prater MD Psychiatric Consult cl is performed by phone with Dr Hussain Pereyra. 02:11 [facility] Admission Criteria: The patient is experiencing suicidal ideation. The patient cl displays symptoms of severe psychiatric disorder resulting in disordered behavior and significant interference with his / her ability to maintain self care. Psychomotor Retardation. The patient requires continuous observation and/or control to protect self, others or property. The patient's care requires a multi-modal treatment plan under close supervision and coordination due to the complexity and severity of the patient's symptoms. Legal Status: Patient's legal status will be Emergency admission: . [place] Safe Act: [place] Safe Act is applicable to this patient. The patient poses a risk to self or other and the Nursing Drafting Engineer has been notified. He/She will enter the patient's data. DSM-V Differential Diagnosis: Unspecified Depressive Disorder (F32.9). Insurance Pre-Certification: Not Required. Family Notification: Notification to family of patient status is not currently needed or appropriate. Awaiting: transfer to [facility]. Vital Signs: 00:21 BP 149 / 75; Pulse 100; Resp 16; Temp 98.8(O); Pulse Ox 98% ; Weight 70.31 kg (R); [facility] Height 5 ft. 5 in. (165.10 cm) (R); Pain 0/10; 02:23 BP 143 / 68; Pulse 80; Resp 16; Temp 97.9; Pulse Ox 98% ; Pain 0/10; mas 00:21 Body Mass Index 25.79 (70.31 kg, 165.10 cm) [facility] Vitals: 02:30 Log In Time N/A - ambulance arrival. cf2 ED Course: 05/14 23:55 Patient visited by Arnulfo Payne, Reg. pm4 23:55 Patient moved to Waiting pm4 02 00:00 Patient moved to [address] 00:07 Patient name changed from Haze\\S\\\\S\\Przeslak\\S\\ to Haze\\S\\ \\S\\Przeslak. EDMS 00:07 Triage Initiated nn1 00:10 Patient visited by Salvatore Chavira. mas 00:15 Patient visited by Salvatore Chavira. [facility] 00:22 Pt greeted and oriented to ED. Patient advised of names of staff involved in care, [facility] location of call [place], wait times and NPO status. Patient has correct armband on for positive identification. Placed in psych safe attire. Bed in low position. Call light in reach. Side rails up X 1. Security observing. Property removed, inventory done, secured in belongings bag- placed in locked storage room. Placed in locker 1. Door closed. Noise minimized. Moved to private room. Verbal reassurance given. Warm blanket given. Pillow given. Psych Safety Check: Location: Psych Room. Visual Assessment: cooperative \\T\\ this time. 00:32 Isabella Flanagan,RN is Primary Nurse. mv5 00:33 The patient / caregiver is instructed regarding the plan of care and ED course. mv5 00:38 Patient visited by Alex Bell PCA. jmv 00:45 Patient visited by Salvatore Chavira. mas 00:46 Adam Prater MD is Attending Physician. pc 01:04 Patient visited by Salvatore Chavira. mas 01:09 Primary Nurse role handed off by Isabella Flanagan,ARLIN cf2 01:09 Tabitha Mills,ARLIN is Primary Nurse. cf2 01:09 Patient visited by Tabitha Mills,ARLIN. cf2 01:11 Acetaminophen Level Sent. jmv 01:11 Basic Metabolic Profile Sent. jmv 01:11 Complete Blood Count Sent. jmv 01:11 Drug Eval Toxicology ED Only Sent. jmv 01:11 Ethyl Alcohol (ethanol) Sent. jmv 01:11 Liver Profile Sent. jmv 01:11 Salicylate Level Sent. jmv 01:11 Thyroid Stimulating Hormone Sent. jmv 01:13 Patient visited by Adam Prater MD. pc 01:15 Patient visited by Salvatore Chavira. mas 01:19 Patient visited by Tabitha Mills RN. cf2 01:20 Sitter at bedside. cf2 01:20 No procedures done that require assistance. cf2 01:20 No IV's were initiated during this patient's visit. cf2 01:30 Patient visited by Salvatore Chavira. mas 01:45 Patient visited by Salvatore Chavira. mas 02:00 Patient visited by Salvatore Chavira. mas 02:16 Patient visited by Salvatore Chavira. mas 02:17 Hussain Pereyra is Hospitalizing Provider. pc 02:25 [facility] Legal paperwork was scanned into [employer] and attached to record. cl 02:38 Patient name changed from Haze\\S\\ \\S\\Przeslak\\S\\ to Haze\\S\\Clinton\\S\\Przeslak. EDMS 02:40 [facility] Payment Agreement was scanned into [employer] and attached to record. hs2 Attachments: 02:25 M[facility] Legal paperwork cl Order Results: Lab Order: Acetaminophen Level; SPEC'M 05/15/16 01:07 Test: ACETAMINOPHEN LEVEL; Value: < 2.0; Range: 10.0-30.0; Abnormal: Below low normal; Units: UG/ML; Status: F Lab Order: Basic Metabolic Profile; SPEC'M 05/15/16 01:07 Test: GLUCOSE, FASTING; Value: 87; Range: 70-105; Units: MG/DL; Status: F Test: BLOOD UREA NITROGEN; Value: 21; Range: 7-18; Abnormal: Above high normal; Units: MG/DL; Status: F Test: CREATININE FOR GFR; Value: 1.14; Range: 0.70-1.30; Units: MG/DL; Status: F Test: GLOMERULAR FILTRATION RATE; Value: > 60.0; Range: >60; Status: F Test: SODIUM LEVEL; Value: 142; Range: 136-145; Units: MEQ/L; Status: F Test: POTASSIUM SERUM; Value: 3.5; Range: 3.5-5.1; Units: MEQ/L; Status: F Test: CHLORIDE LEVEL; Value: 100; Range: 98-107; Units: MEQ/L; Status: F Test: CARBON DIOXIDE LEVEL; Value: 31; Range: 21-32; Units: MEQ/L; Status: F Test: ANION GAP; Value: 11; Range: 8-16; Units: MEQ/L; Status: F Test: CALCIUM LEVEL; Value: 8.8; Range: 8.5-10.1; Units: MG/DL; Status: F Test Note: ; Units are mL/min/1.73 m2 Chronic Kidney Disease Staging per NKF: Stage I & II GFR >=60 Normal to Mildly Decreased Stage III GFR 30-59 Moderately Decreased Stage IV GFR 15-29 Severely Decreased Stage V GFR <15 Very Little GFR Left ESRD GFR <15 on EQUIPMENT SERVICE ENGINEER Lab Order: Complete Blood Count; SPEC'M 05/15/16 01:07 Test: WHITE BLOOD COUNT; Value: 7.1; Range: 4.0-10.0; Units: K/mm3; Status: F Test: RED BLOOD COUNT; Value: 4.95; Range: 4.30-6.10; Units: M/mm3; Status: F Test: HEMOGLOBIN; Value: 13.5; Range: 14.0-18.0; Abnormal: Below low normal; Units: g/dl; Status: F Test: HEMATOCRIT; Value: 40.1; Range: 42.0-52.0; Abnormal: Below low normal; Units: %; Status: F Test: MEAN CORPUSCULAR VOLUME; Value: 80.9; Range: 80.0-96.0; Units: fl; Status: F Test: MEAN CORPUSCULAR HEMOGLOBIN; Value: 27.2; Range: 27.0-33.0; Units: pg; Status: F Test: MEAN CORPUSCULAR HGB CONC; Value: 33.7; Range: 32.0-36.5; Units: g/dl; Status: F Test: RED CELL DISTRIBUTION WIDTH; Value: 13.4; Range: 11.5-14.5; Units: %; Status: F Test: PLATELET COUNT, AUTOMATED; Value: 225; Range: 150-450; Units: k/mm3; Status: F Lab Order: Drug Eval Toxicology ED Only; SPEC'M 05/15/16 01:07 Test: AMPHETAMINES LEVEL URINE; Value: NEGATIVE; Range: NEGATIVE; Status: F Test: BARBITURATES URINE; Value: NEGATIVE; Range: NEGATIVE; Status: F Test: BENZODIAZEPINES URINE; Value: NEGATIVE; Range: NEGATIVE; Status: F Test: CANNABINOIDS URINE; Value: NEGATIVE; Range: NEGATIVE; Status: F Test: COCAINE METABOLITE URINE; Value: NEGATIVE; Range: NEGATIVE; Status: F Test: METHADONE URINE; Value: NEGATIVE; Range: NEGATIVE; Status: F Test: OPIATES URINE; Value: NEGATIVE; Range: NEGATIVE; Status: F Test: TRICYCLIC ANTIDEPRESS URINE; Value: NEGATIVE; Range: NEGATIVE; Status: F Test Note: ; ALL PRESUMPTIVE POSITIVE FINDINGS ARE UNCONFIRMED NORMAL VALUES THRESHOLD IN NG/ML AMPHETAMINES 1000 METHAMPHETAMINES 1000 BARBITURATES 300 BENZODIAZEPINES 300 CANNABINOIDS (THC) 50 COCAINE METABOLITE 300 METHADONE 300 OPIATES 300 PHENCYCLIDINE 25 TRICYCLIC ANTIDEPRESSANTS 1000 RESULTS ARE FOR MEDICAL PURPOSES ONLY. ALL URINE SPECIMENS WILL BE SAVED FOR 3 DAYS. IF CONFIRMATION OF A PRESUMPTIVE POSTIVE SCREEN RESULT IS DESIRED, CALL CHEMISTRY ([phone]) AND REQUEST URINE TO BE SENT TO REFERENCE LAB. FOR A LIST OF CLOSELY RELATED COMPOUNDS PLEASE CALL THE LAB. Lab Order: Ethyl Alcohol (ethanol); SPEC'M 05/15/16 01:07 Test: ETHYL ALCOHOL (ETHANOL); Value: 0.003; Range: 0.000-0.010; Units: %; Status: F Lab Order: Liver Profile; SPEC'M 05/15/16 01:07 Test: AST/SGOT; Value: 40; Range: 15-37; Abnormal: Above high normal; Units: U/L; Status: F Test: ALT/SGPT; Value: 58; Range: 12-78; Units: U/L; Status: F Test: ALKALINE PHOSPHATASE; Value: 91; Range: 45-117; Units: U/L; Status: F Test: BILIRUBIN,TOTAL; Value: 0.2; Range: 0.2-1.0; Units: MG/DL; Status: F Test: BILIRUBIN,DIRECT; Value: < 0.1; Range: 0.0-0.2; Units: MG/DL; Status: F Test: TOTAL PROTEIN; Value: 7.5; Range: 6.4-8.2; Units: GM/DL; Status: F Test: ALBUMIN; Value: 4.4; Range: 3.2-5.2; Units: GM/DL; Status: F Test: ALBUMIN/GLOBULIN RATIO; Value: 1.42; Range: 1.00-1.93; Status: F Lab Order: Salicylate Level; SPEC'M 05/15/16 01:07 Test: SALICYLATE LEVEL; Value: < 1.7; Range: 5.0-30.0; Abnormal: Below low normal; Units: MG/DL; Status: F Lab Order: Thyroid Stimulating Hormone; SPEC'M 05/15/16 01:07 Test: THYROID STIMULATING HORMONE; Value: 1.770; Range: 0.358-3.740; Units: uIU/ML; Status: F Outcome: 02:17 Decision to Hospitalize by Provider. 02:29 Discharge Assessment: Patient awake, alert and oriented x 3. No cognitive and/or cf2 functional deficits noted. Patient verbalized understanding of disposition instructions. Patient awake and alert. Oriented to person, place and time. patient administered narcotics - no. The following High Risk Discharge criteria are identified: Yes, Patient with depression and suicidal ideations. Admitted to Psych accompanied by tech. Condition: good Condition: stable Condition: improved. CT Study completed. 02:32 Patient left the ED. cf2 Signatures: Dispatcher [employer] EDMS Adam Prater MD MD pc Lavin, Diego, Salvatore Lundy NikkoleRN RN nn1 Lesly Pathak, Reg Reg hs2 Tabitha Mills,RN RN cf2 Alex Bell, MILK COLLECTOR MILK COLLECTOR jmv Arnulfo Payne, Reg Reg pm4 Isabella Flanagan,RN RN mv5 Corrections: (The following items were deleted from the chart) 00:47 00:07 PMHx: none; nn1 pc 01:22 01:20 Assist provider with arterial line placement cf2 cf2 Chart Complete MTDD
--- NOTE | 2016-05-17 03:33 | EDDOCDS ---
Physician Documentation [facility] Name: Fidel Grant Age: 25 yrs Sex: Male : 1990 Arrival Date: 05/14/2016 Time: 23:53 Bed BHU1 Private MD: Disposition: 05/15 02:17 Critical Care: Critical care not applicable. pc Disposition: 05/15/16 02:17 Hospitalization ordered by Hussain Pereyra for Inpatient Admission. Preliminary diagnosis are Major depressive disorder, recurrent, moderate, Suicidal ideations. - Bed requested for Admit. - Status is Inpatient Admission. cf2 - Condition is Stable. - Problem is new. - Symptoms are unchanged. HPI: 01:13 This 25 yrs old Male presents to ER via Walkin/Carried/Asstd with complaints pc of Suicidal Ideation. 01:13 The history is obtained from the patient. The patient presents to the emergency pc department with suicidal ideation, depression. At their worst, the symptoms were moderate. In the emergency department, the symptoms are unchanged. He is very reserved, will not discuss his issues. Very brief answers to all questions, poor eye contact. The patient has experienced a previous episode, last year. The patient has not recently seen a physician. He denied any Psych history or admissions despite being admitted here last summer for the same. Historical: - Allergies: No known drug Allergies; - Home Meds: 1. none - PMHx: Depression; - PSHx: femur repair, left; - The history from nurses notes was reviewed: and elements of the historical information I have obtained differs from that reported to nursing. - Social history: Smoking status: Patient uses tobacco products, current every day smoker. No barriers to communication noted, The patient speaks fluent Yoruba, Speaks appropriately for age. - Family history: No immediate family members are acutely ill. - : The pt / caregiver states he / she is not on anticoagulants. Home medication list is obtained from the patient. - Hospitalizations: : No recent hospitalization is reported. - Exposure Risk Screening:: None identified. - Immunization history:: All immunizations up-to-date. - Social history:: the patient is a non-smoker, the patient drinks alcohol. ROS: 01:33 All systems are negative except as listed. The psychiatric and neurological components pc are also addressed in the HPI. Exam: 01:33 General Appearance: alert, no acute distress. pc 01:33 ENT: ear, nose and throat normal, pharynx normal. 01:33 Eyes: pupils equal, round and reactive to light, extraocular motions intact. 01:33 Neck: The exam reveals no acute abnormalities. ROM is normal and painless. No nuchal rigidity is noted.. 01:33 Respiratory: breathing is even and unlabored, breath sounds are normal. 01:33 Cardiovascular: regular pulse rate, regular heart rhythm, normal heart sounds, equal and full pulses bilaterally. 01:33 Abdomen: soft, non-tender, no organomegaly. 01:33 Skin: skin color is normal, warm, dry. 01:33 Extremities: The extremities have a grossly normal appearance, are non-tender, without acute ROM abnormalities. 01:33 Neuro: alert, oriented to person, place and time, cranial nerves normal as tested, no motor deficits, no sensory deficits. 01:33 Psych: mood is depressed, affect is flat. Vital Signs: 00:21 BP 149 / 75; Pulse 100; Resp 16; Temp 98.8(O); Pulse Ox 98% ; Weight 70.31 kg / 155.01 mas lbs (R); Height 5 ft. 5 in. (165.10 cm) (R); Pain 0/10; 02:23 BP 143 / 68; Pulse 80; Resp 16; Temp 97.9; Pulse Ox 98% ; Pain 0/10; mas 00:21 Body Mass Index 25.79 (70.31 kg, 165.10 cm) [facility] MDM: 00:46 Consult PFS/PSA/Urology Teacher: Patient's case requires discussion with on-call pc Psychiatrist ordered. 00:46 PSA/PFS to call [facility], to enter patient data on [place] Safe Act if patient pc involuntarily admitted or transferred for SI or HI ordered. 00:46 Confirm accurate psychiatric medication list and times of last dosage ordered. pc 00:46 Detain Pt Until Medically/PFS Cleared ordered. pc 00:47 Acetaminophen Level Ordered. EDMS 00:47 Basic Metabolic Profile Ordered. EDMS 00:47 Complete Blood Count Ordered. EDMS 00:47 Drug Eval Toxicology ED Only Ordered. EDMS 00:47 Ethyl Alcohol (ethanol) Ordered. EDMS 00:47 Liver Profile Ordered. EDMS 00:47 Salicylate Level Ordered. EDMS 00:47 Thyroid Stimulating Hormone Ordered. EDMS 01:33 Differential diagnosis: depression, suicidal ideation. Plan: labs, PFS eval. pc 01:37 Financial registration complete. hs2 01:38 Consult PFS/PSA/Urology Teacher: Patient's case requires discussion with on-call cl Psychiatrist complete. 01:38 PSA/PFS to call [facility], to enter patient data [place] Safe [place] if patient cl involuntarily admitted or transferred for SI or HI complete. 02:01 Complete Blood Count Reviewed. pc 02:01 Drug Eval Toxicology ED Only Reviewed. pc 02:04 Acetaminophen Level Reviewed. pc 02:04 Basic Metabolic Profile Reviewed. pc 02:04 Liver Profile Reviewed. pc 02:04 Salicylate Level Reviewed. pc 02:04 Ethyl Alcohol (ethanol) Reviewed. pc 02:04 Thyroid Stimulating Hormone Reviewed. pc 02:17 The patient has been medically cleared for psychiatric evaluation, admission and/or pc transfer. [place] Safe Act reporting: The patient poses a significant risk to self or others, and PSA/PFS has notified the [facility] and he/she will complete the required data reporting analyst. Data reviewed: old medical records, vital signs, nurses notes, lab test results. Test interpretation: LAB - all labs as ordered have been reviewed, interpreted and considered in the overall management of the clinical presentation;. The patient has been re-examined and re-evaluated. There is no appreciated change of the patient's symptoms at this time. Other consultation: The ED adult protective caseworker was notified and will evaluate the patient. 02:17 Disposition: The historical points, examination findings, and any diagnostic results pc supporting the provided diagnosis, were discussed with the patient or legal guardian. The need for further work-up and/or treatment in the hospital was explained. 02:23 Admit to IMHU: ordered. EDMS 02:23 REGULAR DIET ordered. EDMS 02:25 [facility] Legal paperwork was scanned into [employer] and attached to record. cl 02:40 [facility] Payment Agreement was scanned into [employer] and attached to record. hs2 Signatures: Dispatcher [employer] EDMS Adam Prater MD MD pc Lavin, Chris, PSA PSA cl Basim MartinRN RN nn1 Lesly Pathak, Reg Reg hs2 Tabitha Mills RN RN cf2 Isabella FlanaganRN RN mv5 The chart was reviewed and I authenticate all verbal orders and agree with the evaluation and treatment provided.Corrections: (The following items were deleted from the chart) 00:47 00:07 PMHx: none; nn1 pc Attachments: 02:40 [facility] Payment Agreement hs2 Chart Complete MTDD
[2016-05-17 06:33] VITALS: BP 140/64
[2016-05-17] MEDS: OSELTAMIVIR PHOSPHATE 75 MG CAP (TAMIFLU) PO SCH (12:30)
[2016-05-17 18:00] VITALS: BP 118/69
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
[2016-05-17] MEDS: traZODone 50 MG TAB PO SCH (21:42)
[2016-05-18 06:15] VITALS: BP 119/62
[2016-05-18] MEDS: OSELTAMIVIR PHOSPHATE 75 MG CAP (TAMIFLU) PO SCH (09:25)
[2016-05-18 18:31] VITALS: BP 118/56
[2016-05-18] MEDS: traZODone 50 MG TAB PO SCH (23:28)
[2016-05-19 06:30] VITALS: BP 129/64
--- NOTE | 2016-05-19 07:29 | IPN ---
DATE: 05/18/2016 CHIEF COMPLAINT: Says he feels better. SUBJECTIVE: Seen for followup, in the presence of staff. He says he feels better, in that he is less irritated, less depressed. He says his "attitude" has improved. Also indicates sleep is better. MENTAL STATUS EXAM: Neat, cooperative, coherent. No agitation. No psychomotor retardation. Affect is somewhat restricted in range. Denies any thoughts of harming himself or anyone else. No current evidence of any psychosis. Judgment and insight are fair. ASSESSMENT: Major depressive disorder, recurrent. Mood is improved. PLAN: Continue current care and observations. He is to be encouraged to participate in activities on the unit. Should current progress continue, would anticipate discharge shortly. VITAL SIGNS: Blood pressure 119/62, pulse 77, temperature 97.8.
[2016-05-19] MEDS: OSELTAMIVIR PHOSPHATE 75 MG CAP (TAMIFLU) PO SCH (09:02)
[2016-05-19 18:00] VITALS: BP 124/61
[2016-05-19] MEDS: traZODone 50 MG TAB PO SCH (22:21)
[2016-05-20 06:00] VITALS: BP 131/60
--- NOTE | 2016-05-20 08:08 | IPN ---
DATE: 05/19/2016 CHIEF COMPLAINT: Says feels better. SUBJECTIVE: Seen for followup. Indicates feels better, and that moods are improved. Feels less irritated. Sleep is good as is appetite. MENTAL STATUS EXAMINATION: Neat and cooperative. Coherent. No agitation. No psychomotor retardation. Affect restricted, but reactive. Denies any thoughts of harming himself or anyone else. Currently no evidence of any psychosis. His judgment is improved. Insight fair. ASSESSMENT: Major depressive disorder, recurrent. PLAN: Continue current care and observations, and participation in activities in the unit. He is due to see his assigned psychiatrist and the treatment team tomorrow. VITAL SIGNS: Blood pressure 129/64, pulse 83, temperature 97.5.
[2016-05-20] MEDS: OSELTAMIVIR PHOSPHATE 75 MG CAP (TAMIFLU) PO SCH (09:23)
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
[2016-05-20 18:00] VITALS: BP 124/60
[2016-05-20] MEDS: traZODone 50 MG TAB PO SCH (21:41)
[2016-05-21 07:03] VITALS: BP 111/63
[2016-05-21] MEDS: OSELTAMIVIR PHOSPHATE 75 MG CAP (TAMIFLU) PO SCH (09:10)
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
[2016-05-21 18:00] VITALS: BP 142/64
[2016-05-21] MEDS: traZODone 50 MG TAB PO SCH (22:11)
[2016-05-22 06:37] VITALS: BP 152/78
[2016-05-22] MEDS ORDERED: OSEL75CA PO (08:54)
[2016-05-22] MEDS ORDERED: TRAZO50TA PO (13:41)
[2016-05-22] MEDS ORDERED: HYDRO50TAB PO (13:41)
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
== END 2016-05-22 14:05 | disposition home or self-care (01) | DRG 885 ==
LOC: M ED 23:53 → M PSY 05-15 02:35 → M ED INP 05-19 17:04 → M PSY 05-19 17:05
PROVIDERS: ADMIT Psychiatry & Neurology Psychiatry; ATTEND Psychiatry & Neurology Psychiatry
DX: F32.1 Major depressive disorder, single episode, moderate (principal); F17.200 Nicotine dependence, unspecified, uncomplicated

== ENCOUNTER 2016-11-29 15:12 | Emergency (ER) | payer OTHER ==
[~2016-11-29] VITALS: Ht 165.1 cm; Wt 65.9 kg
[2016-11-29 15:12] VITALS: BP 134/81
[~2016-11-29 15:12] MED LIST: DICL1GEL3 TD; HYDRO50TAB PO; OSEL75CA PO; TRAZO50TA PO
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
== END 2016-11-29 18:13 | disposition home or self-care (01) ==
LOC: M ED 15:12
DX: S00.03XA Contusion of scalp, initial encounter (principal); W10.9XXA Fall (on) (from) unspecified stairs and steps, initial encounter; Y92.099 Unspecified place in other non-institutional residence as the place of occurrence of the external cause; Y93.89 Activity, other specified; Y99.9 Unspecified external cause status; F17.200 Nicotine dependence, unspecified, uncomplicated; Z79.899 Other long term (current) drug therapy

== ENCOUNTER 2016-12-27 09:29 | Emergency (ER) | payer OTHER ==
[~2016-12-27] VITALS: Ht 165.1 cm; Wt 61.4 kg
[2016-12-27 13:40] LABS: METHADONE URINE NEGATIVE (NEGATIVE)
[2016-12-27 13:47] LABS: MEAN CORPUSCULAR HEMOGLOBIN 28.2 pg (27.0-33.0); MEAN CORPUSCULAR HGB CONC 34.5 g/dl (32.0-36.5); MEAN CORPUSCULAR VOLUME 81.5 fl (80.0-96.0); RED CELL DISTRIBUTION WIDTH 13.4 % (11.5-14.5); WHITE BLOOD COUNT 6.2 K/mm3 (4.0-10.0)
[2016-12-27 13:50] LABS: ALBUMIN 4.1 GM/DL (3.2-5.2); ALBUMIN/GLOBULIN RATIO 1.28 (1.00-1.93); ALKALINE PHOSPHATASE 67 U/L (45-117); ALT/SGPT 40 U/L (12-78); ANION GAP 5 MEQ/L (8-16); AST/SGOT 24 U/L (15-37); BILIRUBIN,DIRECT < 0.1 MG/DL (0.0-0.2); BILIRUBIN,TOTAL 0.3 MG/DL (0.2-1.0); BLOOD UREA NITROGEN 15 MG/DL (7-18); CARBON DIOXIDE LEVEL 30 MEQ/L (21-32); CHLORIDE LEVEL 108 MEQ/L (98-107); CREATININE FOR GFR 0.91 MG/DL (0.70-1.30); GLOMERULAR FILTRATION RATE > 60.0 (>60); GLUCOSE, FASTING 87 MG/DL (70-105); POTASSIUM SERUM 4.2 MEQ/L (3.5-5.1); SODIUM LEVEL 143 MEQ/L (136-145); TOTAL PROTEIN 7.3 GM/DL (6.4-8.2)
[2016-12-27 14:26] VITALS: BP 126/78
== END 2016-12-27 14:30 | disposition home or self-care (01) ==
LOC: M ED 09:29
DX: R45.4 Irritability and anger (principal); Z79.899 Other long term (current) drug therapy
CPT/HCPCS: 80048; 80076; 80307; 84443; 85027; 99284; G0480